=== PATIENT | male | born 2000 | race African-American/Black ===

== ENCOUNTER 2022-01-15 18:31 | Emergency (ER) | payer BC, SELFPAY ==
[2022-01-15] MEDS ORDERED: Gabapentin 300 MG CAP ONE (22:09)
== END 2022-01-15 19:23 | disposition home or self-care (01) ==
LOC: CSHERS 18:31
DX: S60.221A Contusion of right hand, initial encounter (principal); X58.XXXA Exposure to other specified factors, initial encounter
CPT/HCPCS: 99283

== ENCOUNTER 2022-02-01 21:57 | Emergency (ER) | payer SELFPAY | END 2022-02-01 22:35 | disposition home or self-care (01) | LOC: CSHERS 21:57 | DX: L02.01 Cutaneous abscess of face (principal) | CPT/HCPCS: 10060 ==